=== PATIENT | male | born 1970 | race Caucasian/White ===

== ENCOUNTER → 2018-08-29 10:08 | Outpatient (CLI) | payer OTHER ==
[2014-07-11 08:27] VITALS: BMI 26.0
[~2018-08-29 10:08] MED LIST: CIPRO500 MG PO; HYDROCODONE-APA1 TAB PO; NAPROSYN250 MG PO; TRANXENE T-TAB7.5 MG PO
== END | disposition home or self-care (01) ==
LOC: D.RAD 10:08
DX: M79.672 Pain in left foot (principal); R22.42 Localized swelling, mass and lump, left lower limb